=== PATIENT | female | born 1940 | race Caucasian/White ===

== ENCOUNTER 2023-10-15 09:22 | Emergency (ER) | payer OTHER, SELFPAY ==
--- NOTE | ~2023-10-15 | XR_ITS ---
EXAMINATION: XR PELVIS CLINICAL INFORMATION: Hip pain COMPARISON: None available. TECHNIQUE: AP view of the pelvis. FINDINGS: Degenerative changes are seen at the L4-L5 level of the lumbosacral spine. Alignment of both hips is normal without visible fracture or dislocation seen. Hypertrophic changes are present at the iliac crests, acetabula and greater trochanters. No significant degenerative changes. XR/XR pelvis 1-2V IMPRESSION: Normal alignment of both hips without acute osseous abnormality seen. Degenerative changes are present in the lumbar spine.
[2023-10-15 09:26] VITALS: BP 121/60; PULSE 81; RESP 18; TEMP 36.7; O2SAT 92; BMI 52.5
--- NOTE | 2023-10-15 10:07 | ED.BACK ---
HPI - Back Pain/Injury General Chief Complaint: Back Pain/Injury Stated Complaint: Back pain/Leg pain Time Seen by Provider: 10/15/23 10:06 Source: patient Mode of arrival: ambulatory Limitations: no limitations History of Present Illness HPI Narrative: This is a 83-year-old female history of osteoarthritis, obesity, hypertension presents with complaints of right-sided lower back pain with radiation to right hip for the past two weeks. Patient reported leg pain on the right to nurse but to me she clarifies that shes not having leg pain however sometimes her back pain goes into her leg. Denies a/c swelling Patient reports her pain is so severe that she typically uses a walker however has been in a wheelchair. Patient lives at home. Patient denies urinary frequency, urgency, incontinence/retention, changes in bowel habits, nausea, vomiting, fevers, chills, saddle paresthesias, weakness, chest pain, shortness of breath. Related Data Previous Rx's Medication Instructions Recorded lidocaine 5 % topical patch 1 patch topical DAILY PRN pain #15 10/15/23 ea morphine 15 mg immediate release 15 mg PO Q6H PRN pain 5 days #10 10/15/23 tablet tabs Allergies Allergy/AdvReac Type Severity Reaction Status Date / Time No Known Allergies Allergy Verified 10/15/23 09:25 Review of Systems Review of Systems: Constitutional : No Weight loss, No Fever, No Chills, No Fatigue, No Malaise ENT/Mouth : No sore throat, No Rhinorrhea Eyes: No Eye Pain, No Swelling, No Redness Cardiovascular : No Chest Pain, No SOB, No Dyspnea on Exertion, No Orthopnea, No Edema, No Palpitations Respiratory : No Cough, No Sputum, No Wheezing Gastrointestinal : No Nausea, No Vomiting, No Diarrhea, No Constipation, No abdominal Pain, No Hematochezia, No Melena Genitourinary : No Dysuria, No Urinary Frequency, No Hematuria, Musculoskeletal : No joint pain, No Myalgias, No Joint Swelling, + lower extremity pain , + back pain Skin : No Skin Lesions, No rash Neuro : No Weakness, No Numbness, No Dizziness, No Headache, No saddle paresthesias. Psych : No Anxiety/Panic, No Depression All other systems reviewed and are negative Yes all other systems are reviewed and are negative PMFSH Past Medical History Attestation statement: The following information was validated with the patient. Source: old records reviewed and nursing notes reviewed Social History Social History Smoked in Last 30 Days: No Use of substances other than those prescribed or required for medical reasons: No Advance Directives: No Advance Directives Information Provided: No Physical Exam Vital Signs: Vital Signs: Last Vital Signs Temp 98.1 F 10/15/23 09:26 Pulse 81 10/15/23 09:26 Resp 18 10/15/23 09:26 BP 121/60 10/15/23 09:26 Pulse Ox 92 10/15/23 09:26 O2 Del Method Room Air 10/15/23 09:26 BMI result Body Mass Index 52.5 vss Appearance: Alert.? Oriented X3.? No acute distress.? Head: Normocephalic, atraumatic, no step-offs or deformities Eyes: Pupils equal, round and reactive to light.? ENT: Pharynx normal.? Neck: Normal inspection.? Neck supple.? CVS: Normal heart rate and rhythm.? Pulses normal.? Respiratory: No respiratory distress.? Breath sounds normal.? Abdomen: Soft and nontender.? Skin: Skin warm and dry.? Normal skin color.? Normal skin turgor.? Extremities: No lower extremity edema.? No calf ttp, negative chepe b/l. Global weakness 2+ DP,AT, PT and popliteal pulses equal and b/l. Back: No midline tenderness, no C-spine tenderness, full range of motion, no CVA tenderness bilaterally + discomfort with palpation of right-sided lower paraspinous muscles in the lumbar region with radiation into right buttocks. Neuro: Oriented X 3.? No motor deficit.? No sensory deficit. CN 2-12 intact . No saddle paresthesias. Normal sensation to bilateral lower extremities distally. Course Reevaluation(s) Reevaluation #1: Patient ambulating independently in the irizarry feels better. Urine clean. No foccal neuo deficits. Xray pending Time: 12:00 Reevaluation #2: Educated patient on diagnosis and treatment plan, answered all question, patient verbalizes understanding. At this time patient will be discharged home, advised to return with new or worsening symptoms. Educated on worrisome signs and symptoms and when to return. At this time I feel comfortable discharge home. Medications Administered Discontinued Medications Generic Name Dose Route Start Last Admin Trade Name Pio PRN Reason Stop Dose Admin Lidocaine 1 patch 10/15/23 10:16 10/15/23 10:38 Lidocaine 4 % Patch Adh..Patch TRANSDERMA 10/15/23 10:17 1 patch ONCE ONE Administration Protocol Morphine Sulfate 15 mg 10/15/23 10:18 10/15/23 10:38 Morphine Sulfate Immed Release 15 Mg Tablet PO 10/15/23 10:19 15 mg ONCE ONE Administration Medical Decision Making Medical Decision Making [facility] Narrative: 83-year-old female presents with complaints of right-sided lower back pain with radiation into buttocks and abdomen for the past week worsening PE w/ discomfort with palpation of right-sided lower paraspinous muscles in the lumbar region with radiation into right buttocks. No abd pain Likely sciatica versus lumbar radiculopathy versus lumbago. Unlikely cord compression, cauda equina, epidural abscess. Unlikely acute abdomen, obstructing uropathy, UTI. I do not suspect acute threat to Limb, neurovascular compromise or arterial occlusion. Based off history and physical exam unlikely fracture, dislocation Plan imaging, pain control Differential Diagnosis Differential Diagnoses: The differential diagnosis associated with the presentation includes Likely sciatica versus lumbar radiculopathy versus lumbago. Unlikely cord compression, cauda equina, epidural abscess. Unlikely acute abdomen, obstructing uropathy, UTI. I do not suspect acute threat to [place], neurovascular compromise or arterial occlusion. Based off history and physical exam unlikely fracture, dislocation Admission/Observation Consideration of admission/observation: Escalation of care including admission/observation considered unlikely Lab Data Labs: Lab Results 10/15/23 Range/Units 11:37 Urine Color Yellow Urine Appearance Clear Urine pH 6.0 (5.0-9.0) Ur Specific [place] 1.025 (1.005-1.025) Urine Protein Trace (Neg-Trace) mg/dL Urine Glucose (UA) Negative (Negative) mg/dL Urine Ketones Negative (Negative) mg/dL Urine Blood Negative (Negative) Urine Nitrite Negative (Negative) Ur Leukocyte Esterase Trace H (Negative) Urine RBC 0-2 (0-2) /HPF Urine WBC 0-5 (0-5) /HPF Ur Squamous Epith Cells 0-2 (0-2) /HPF Urine Bacteria None Seen (None Seen) Hyaline Casts 0-2 (0-2) /LPF Independent Interpretation I performed an independent interpretation of an: Plain X-Ray Radiology Impression Discussion of test interpretation with radiology: I have reviewed the radiologist's reading. Chronic Conditions Patient?s care impacted by: Hypertension and Other (obesity ) Discharge Plan Discharge Clinical Impression: Lumbar radiculopathy Patient Disposition: Home, Self-Care Instructions: Lumbar Radiculopathy (ED), Back Pain (ED) Additional Instructions: Take your medications as prescribed. If you were prescribed antibiotics today, it is important that you take your medication to their entirety, do not skip any doses, do not finish them early. Follow-up with your primary care provider this week. Return to the emergency department with new or worsening symptoms. Such as fevers, chills, chest pain, shortness of breath, nausea, vomiting, dizziness, headache, vision changes, lethargy In case of emergency call 911 A narcotic has been sent to your pharmacy please take this as prescribed. Do not take more than the prescribed dose. Narcotic medications can cause addiction. Please do not mix them with alcohol. Do not take them while driving or operating machinery. Do not take them with any other narcotics. Do not share them with friends or family. They can cause constipation. Take them only for severe pain. Prescriptions: New lidocaine 5 % adhesive patch,medicated 1 patch topical DAILY PRN (Reason: pain) Qty: 15 0RF Rx Instructions: leave on most painful area for up to 12 hrs morphine 15 mg tablet 15 mg PO Q6H PRN (Reason: pain) 5 Days Qty: 10 0RF Rx Instructions: Partial Fill upon patient request. Referrals: Sal Ramsey III, MD [Primary Care Provider] - 2 days Interventions: ED Discharge Assessment Last Done: 10/15/23 12:07 Discharge Date/Time: 10/15/23 12:09
[2023-10-15] MEDS: Morphine Sulfate Immed Release 15 MG TABLET PO (10:38)
[2023-10-15] MEDS: Lidocaine 4 % Patch ADH..PATCH 1 PATCH TRANSDERMA (10:38)
[2023-10-15 11:45] LABS: Appearance Urine Clear; Color Urine Yellow; Glucose Urine UA Negative (Negative); Leukocyte Esterase Urine Trace (Negative); Nitrite Urine Negative (Negative); Specific Gravity - Urine 1.025 (1.005-1.025); UMIC TRIGGER UACC YES; Urine Blood Negative (Negative); Urine Ketones Negative (Negative); Urine Protein Trace mg/dL (Neg-Trace)
[2023-10-15 11:56] LABS: Bacteria Urine None Seen (None Seen); Hyaline Casts Urine 0-2 /LPF (0-2); RBC Urine 0-2 /HPF (0-2); Squamous Epithelial Cell Urine 0-2 /HPF (0-2); WBC Urine 0-5 /HPF (0-5)
== END 2023-10-15 12:09 | disposition home or self-care (01) ==
PROVIDERS: Physician Assistant; Emergency Provider Emergency Medicine; PCP Internal Medicine
DX: M54.16 Radiculopathy, lumbar region (principal); M79.604 Pain in right leg; Z79.899 Other long term (current) drug therapy
CPT/HCPCS: 51798; 72170; 81001; 99284